=== PATIENT | male | born 1960 | race Caucasian/White ===

== ENCOUNTER 2019-06-22 14:24 | Emergency (ER) | payer SELFPAY ==
[~2019-06-22] VITALS: Ht 182.9 cm; Wt 90.7 kg
[2019-06-22 14:34] VITALS: BP_SYST 164
--- NOTE | 2019-06-22 16:01 | NUR ---
PAtient seen speaking to admitting stating he is leaving. patient observed leaving with girlfriend out of ER door. Patient left without being seen
== END 2019-06-22 16:01 | disposition left against medical advice (07) ==
LOC: SED 14:24
DX: Z02.89 Encounter for other administrative examinations (principal); Z53.21 Procedure and treatment not carried out due to patient leaving prior to being seen by health care provider

== ENCOUNTER 2019-07-06 22:59 | Emergency (ER) | payer BC ==
[~2019-07-06] VITALS: Ht 182.9 cm; Wt 90.7 kg
[2019-07-06 22:59] VITALS: BP_SYST 151
--- NOTE | 2019-07-06 23:05 | NUR ---
Pt to ER waiting room with girlfriend in stable condition.
--- NOTE | 2019-07-07 01:09 | NUR ---
Pt placed to ER bed 06 with girlfriend. Pt report given to NICOLE Hinojosa.
--- NOTE | 2019-07-07 01:15 | NUR ---
Pt brought in by self. Pt states that he has no medical complaint at this time. Pt states that he is only coming to ED for evaluation at the request of his girlfriend, who has been diagnosed with body lice at a previous visit to a different ER. Pt denies any S/S of body lice. Pt denies chest pain, nausea, vomiting, diarrhea, shortness of breath, dizziness. Pt denies any other medical complaint at this time. VSS, no distress. resting in ED bed.
--- NOTE | 2019-07-07 01:15 | NUR ---
ER at bedside examining patient.
[2019-07-07 02:00] VITALS: BP_SYST 151
--- NOTE | 2019-07-07 02:00 | NUR ---
Patient given written and verbal discharge instructions and verbalizes understanding. ER MD discussed with patient the results and treatment provided. Patient in stable condition. ID arm band removed. No Iv Rx of Permethrin given. Patient educated on pain management and to follow up with PMD. Pain Scale 0/10. Opportunity for questions provided and answered. Medication side effect fact sheet provided.
== END 2019-07-07 02:00 | disposition home or self-care (01) ==
LOC: SED 22:59
DX: B86 Scabies (principal)
CPT/HCPCS: 99283